=== PATIENT | male | born 1960 | race Caucasian/White ===

== ENCOUNTER 2018-03-15 10:26 | Inpatient (IN) | payer BC ==
[~2018-03-15] VITALS: Ht 175.3 cm; Wt 50.8 kg
[~2018-03-15 10:26] MED LIST: CYAN50TA2 PO; PANT40TA25 PO; SELE200T27 PO; SOTA80TA20 PO; VITA1CAP85 PO
[2018-03-15] MEDS ORDERED: SODIUM CHLORIDE 0.9% 1000ML 1,000 ML IV ONE ×2 (10:33→11:44)
[2018-03-15] MEDS ORDERED: ASPIRIN 325 MG TABLET ONE (10:48)
[2018-03-15 10:51] LABS: BASOPHILS % (AUTO) 0.5 % (0.0-5.0); EOSINOPHILS % (AUTO) 0.9 % (0.0-8.0); HEMATOCRIT 43.6 % (42-54); LYMPHOCYTES % (AUTO) 12.4 % (21.0-51.0); MEAN CORPUSCULAR HEMOGLOBIN 31.9 pg (27.0-33.0); MEAN CORPUSCULAR HGB CONC 33.7 g/dL (32.0-36.0); MEAN CORPUSCULAR VOLUME 94.6 fL (79-99); MONOCYTES % (AUTO) 5.4 % (3.0-13.0); NEUTROPHILS % (AUTO) 80.8 % (40.0-77.0); PLATELET COUNT (AUTO) 405 K/uL (130-400); RED BLOOD CELL COUNT(AUTO) 4.61 MIL/uL (4.50-6.20); RED CELL DISTRIBUTION WIDTH 12.8 % (11.0-15.5); WHITE BLOOD COUNT (AUTO) 10.2 K/uL (4.8-10.8)
[2018-03-15 10:58] LABS: CREATININE 1.2 mg/dL (0.5-1.5); POTASSIUM 5.3 mmol/L (3.5-5.1)
[2018-03-15 11:12] LABS: ALBUMIN 3.5 g/dL (3.5-5.0); BILIRUBIN,TOTAL 0.3 mg/dL (0.2-1.0); CREATINE KINASE MB 1.1 ng/mL (0.5-3.6); TOTAL PROTEIN, SERUM 7.6 g/dL (6.0-8.3)
[2018-03-15] MEDS ORDERED: NITROGLYCERIN 1GM/1 INCH PACKET TD ONE (11:20)
[2018-03-15 11:43] LABS: INR 1.03 (0.85-1.15); PARTIAL THROMBOPLASTIN TIME 36.1 SEC (26.3-35.5); PROTHROMBIN TIME 10.8 SEC (9.6-11.6)
[2018-03-15] MEDS ORDERED: IOHEXOL-350 75 ML VIAL IV ONE (13:16)
[2018-03-15 14:44] VITALS: BP 121/84
[2018-03-15] MEDS: SODIUM CHLORIDE 0.9% 1000ML 1,000 ML IV SCH (15:24)
[2018-03-15 16:09] LABS: CREATINE KINASE MB 1.1 ng/mL (0.5-3.6); CREATINE KINASE, TOTAL 52 U/L (21-232); MYOGLOBIN 20 ng/mL (10-92); TROPONIN I < 0.04 ng/mL (0.00-0.06)
[2018-03-15 16:28] VITALS: BP 124/86
[2018-03-15] MEDS: PNEUMOCOCCAL VACCINE POLYVALENT 0.5 ML/VIAL [PPV] IM SCH (16:30)
[2018-03-15] MEDS: METHYLPREDNISOLONE SOD SUCC 40MG/ML 1ML IVP SCH ×2 (17:43→23:05)
[2018-03-15] MEDS: IPRATROPIUM/ALBUTEROL SULFATE 3 ML SOLUTION IH SCH (18:11)
[2018-03-15 19:50] VITALS: BP 100/70
[2018-03-15] MEDS: DOXYCYCLINE 100MG+NS 250ML 250 ML IV SCH (20:31)
[2018-03-15] MEDS: CEFEPIME HCL 1 GM VIAL IVP SCH (20:34)
[2018-03-15 20:40] LABS: CREATINE KINASE MB 1.1 ng/mL (0.5-3.6); CREATINE KINASE, TOTAL 51 U/L (21-232); MYOGLOBIN 20 ng/mL (10-92); TROPONIN I < 0.04 ng/mL (0.00-0.06)
[2018-03-15] MEDS ORDERED: SOTALOL HCL 80 MG TABLET PO SCH (21:00)
[2018-03-15] MEDS ORDERED: CEFEPIME HCL 1 GM VIAL IVP SCH (21:00)
[2018-03-15] MEDS ORDERED: DOXYCYCLINE 100MG+NS 250ML 250 ML IV SCH (22:00)
[2018-03-15] MEDS ORDERED: GUAIFENESIN-CODEINE 5 ML SYRUP ONE (22:56)
[2018-03-15] MEDS ORDERED: ZOLPIDEM TARTRATE 5 MG TAB ONE (22:57)
[2018-03-15 23:42] VITALS: BP 120/79
[2018-03-16] VITALS (18 sets, daily range): BP systolic 96–148; BP diastolic 60–92
[2018-03-16] MEDS: IPRATROPIUM/ALBUTEROL SULFATE 3 ML SOLUTION IH SCH ×4 (00:19→19:21)
[2018-03-16 03:47] LABS: BASOPHILS % (AUTO) 0.2 % (0.0-5.0); HEMATOCRIT 41.6 % (42-54); LYMPHOCYTES % (AUTO) 6.4 % (21.0-51.0); MEAN CORPUSCULAR HEMOGLOBIN 32.6 pg (27.0-33.0); MEAN CORPUSCULAR HGB CONC 34.6 g/dL (32.0-36.0); MEAN CORPUSCULAR VOLUME 94.1 fL (79-99); MONOCYTES % (AUTO) 0.4 % (3.0-13.0); PLATELET COUNT (AUTO) 415 K/uL (130-400); RED BLOOD CELL COUNT(AUTO) 4.42 MIL/uL (4.50-6.20); WHITE BLOOD COUNT (AUTO) 9.8 K/uL (4.8-10.8)
[2018-03-16 04:02] LABS: INR 1.02 (0.85-1.15); PARTIAL THROMBOPLASTIN TIME 34.7 SEC (26.3-35.5); PROTHROMBIN TIME 10.7 SEC (9.6-11.6)
[2018-03-16 04:06] LABS: ALBUMIN 3.5 g/dL (3.5-5.0); BILIRUBIN,TOTAL 0.1 mg/dL (0.2-1.0); CREATININE 0.9 mg/dL (0.5-1.5); PHOSPHORUS 3.2 mg/dL (2.5-4.9); POTASSIUM 4.3 mmol/L (3.5-5.1); TOTAL PROTEIN, SERUM 7.6 g/dL (6.0-8.3)
[2018-03-16] MEDS: SODIUM CHLORIDE 0.9% 1000ML 1,000 ML IV SCH ×2 (04:28→17:10)
[2018-03-16] MEDS ORDERED: METOPROLOL TARTRATE 1 MG/ML 5ML VIAL IV ONE (05:10)
[2018-03-16] MEDS: SOTALOL HCL 80 MG TABLET PO SCH ×2 (05:47→21:23)
[2018-03-16] MEDS: CEFEPIME HCL 1 GM VIAL IVP SCH ×3 (05:49→21:22)
[2018-03-16] MEDS: PANTOPRAZOLE SODIUM 40 MG TABLET.DR PO SCH (08:47)
[2018-03-16] MEDS: METHYLPREDNISOLONE SOD SUCC 40MG/ML 1ML IVP SCH ×2 (08:47→18:14)
[2018-03-16] MEDS ORDERED: ENOXAPARIN SODIUM 30 MG/0.3 ML SQ SCH (09:00)
[2018-03-16] MEDS: DOXYCYCLINE 100MG+NS 250ML 250 ML IV SCH ×2 (10:38→21:23)
[2018-03-16] MEDS ORDERED: PROPOFOL 10 MG/ML 20ML VIAL IV ONE (13:09)
[2018-03-16] MEDS ORDERED: GLYCOPYRROLATE 0.2 MG/ML 5 ML VIAL ONE (13:10)
[2018-03-16] MEDS ORDERED: LIDOCAINE HCL-MPF 2% 5ML VIAL ONE (13:13)
[2018-03-16] MEDS: PNEUMOCOCCAL VACCINE POLYVALENT 0.5 ML/VIAL [PPV] IM SCH (16:30)
[2018-03-16 16:35] LABS: APPEARANCE BODY FLUID CLOUDY (CLEAR); COLOR,BODY FLUID PINK (LT YELLOW); SPECIMENTYPE,BODY FLUID WASHINGS; TOTAL VOLUME,BODY FLUID 25 mL
[2018-03-16 16:36] LABS: BODY FLUID RBC 1116 /cu. mm.; BODY FLUID WBC 41 /cu. mm.
[2018-03-16 18:02] LABS: BF EOSINOPHIL 1 %; BF LYMPHOCYTE 13 %; BF MESOTHELIAL 17 %; BF MONOCYTE 3 %; BF OTHER CELLS 3
[2018-03-16] MEDS ORDERED: TEMAZEPAM 15 MG CAPSULE PO SCH (21:00)
[2018-03-17] MEDS: METHYLPREDNISOLONE SOD SUCC 40MG/ML 1ML IVP SCH ×3 (02:33→17:12)
[2018-03-17 03:00] VITALS: BP 113/74
[2018-03-17] MEDS: CEFEPIME HCL 1 GM VIAL IVP SCH ×3 (05:56→20:46)
[2018-03-17] MEDS: SODIUM CHLORIDE 0.9% 1000ML 1,000 ML IV SCH (05:56)
[2018-03-17] MEDS: IPRATROPIUM/ALBUTEROL SULFATE 3 ML SOLUTION IH SCH ×5 (05:59→23:52)
[2018-03-17 06:11] LABS: BASOPHILS % (AUTO) 0.1 % (0.0-5.0); HEMATOCRIT 39.3 % (42-54); LYMPHOCYTES % (AUTO) 4.8 % (21.0-51.0); MEAN CORPUSCULAR VOLUME 94.1 fL (79-99); MONOCYTES % (AUTO) 4.1 % (3.0-13.0); PLATELET COUNT (AUTO) 353 K/uL (130-400); RED BLOOD CELL COUNT(AUTO) 4.17 MIL/uL (4.50-6.20); RED CELL DISTRIBUTION WIDTH 12.8 % (11.0-15.5); WHITE BLOOD COUNT (AUTO) 17.9 K/uL (4.8-10.8)
[2018-03-17 06:20] LABS: CREATININE 0.9 mg/dL (0.5-1.5); MAGNESIUM 1.8 mg/dL (1.80-2.40); POTASSIUM 4.1 mmol/L (3.5-5.1)
[2018-03-17 07:00] VITALS: BP 122/77
[2018-03-17] MEDS: SOTALOL HCL 80 MG TABLET PO SCH ×2 (09:38→20:47)
[2018-03-17] MEDS: PANTOPRAZOLE SODIUM 40 MG TABLET.DR PO SCH (09:38)
[2018-03-17] MEDS: DOXYCYCLINE 100MG+NS 250ML 250 ML IV SCH ×2 (09:39→20:46)
[2018-03-17] MEDS: ENOXAPARIN SODIUM 30 MG/0.3 ML SQ SCH (09:39)
[2018-03-17 11:00] VITALS: BP 128/78
[2018-03-17] MEDS: ALPRAZOLAM 0.25 MG TABLET PO PRN ×2 (15:01→19:09)
[2018-03-17 16:00] VITALS: BP 123/85
[2018-03-17 19:00] VITALS: BP 131/84
[2018-03-17] MEDS: TEMAZEPAM 30 MG CAP PO SCH (20:47)
[2018-03-17 23:00] VITALS: BP 133/78
[2018-03-18] MEDS: METHYLPREDNISOLONE SOD SUCC 40MG/ML 1ML IVP SCH ×3 (00:15→17:42)
[2018-03-18 03:00] VITALS: BP 118/84
[2018-03-18] MEDS: CEFEPIME HCL 1 GM VIAL IVP SCH ×3 (06:02→21:19)
[2018-03-18 06:26] LABS: BASOPHILS % (AUTO) 0.3 % (0.0-5.0); HEMATOCRIT 44.1 % (42-54); LYMPHOCYTES % (AUTO) 9.9 % (21.0-51.0); MEAN CORPUSCULAR HEMOGLOBIN 32.5 pg (27.0-33.0); MEAN CORPUSCULAR HGB CONC 33.9 g/dL (32.0-36.0); MEAN CORPUSCULAR VOLUME 95.8 fL (79-99); MONOCYTES % (AUTO) 6.2 % (3.0-13.0); NEUTROPHILS % (AUTO) 83.6 % (40.0-77.0); PLATELET COUNT (AUTO) 398 K/uL (130-400); RED CELL DISTRIBUTION WIDTH 13.1 % (11.0-15.5); WHITE BLOOD COUNT (AUTO) 11.4 K/uL (4.8-10.8)
[2018-03-18 06:33] LABS: CREATININE 0.7 mg/dL (0.5-1.5); POTASSIUM 4.2 mmol/L (3.5-5.1)
[2018-03-18] MEDS: IPRATROPIUM/ALBUTEROL SULFATE 3 ML SOLUTION IH SCH ×4 (06:47→23:17)
[2018-03-18 08:03] VITALS: BP 127/84
[2018-03-18] MEDS: PANTOPRAZOLE SODIUM 40 MG TABLET.DR PO SCH (09:45)
[2018-03-18] MEDS: SOTALOL HCL 80 MG TABLET PO SCH ×2 (09:45→21:19)
[2018-03-18] MEDS: DOXYCYCLINE 100MG+NS 250ML 250 ML IV SCH ×2 (09:45→21:20)
[2018-03-18] MEDS: ALPRAZOLAM 0.25 MG TABLET PO PRN ×3 (09:45→18:09)
[2018-03-18] MEDS: ENOXAPARIN SODIUM 30 MG/0.3 ML SQ SCH (09:46)
[2018-03-18 11:51] VITALS: BP 124/84
[2018-03-18 15:20] VITALS: BP 119/80
[2018-03-18 19:28] VITALS: BP 129/78
[2018-03-18] MEDS: TEMAZEPAM 30 MG CAP PO SCH (21:19)
[2018-03-18 23:33] VITALS: BP 122/80
[2018-03-19] MEDS: METHYLPREDNISOLONE SOD SUCC 40MG/ML 1ML IVP SCH ×3 (01:04→17:14)
[2018-03-19 04:49] VITALS: BP 132/84
[2018-03-19] MEDS: CEFEPIME HCL 1 GM VIAL IVP SCH ×3 (05:47→21:31)
[2018-03-19 06:13] LABS: BASOPHILS % (AUTO) 0.3 % (0.0-5.0); HEMATOCRIT 43.2 % (42-54); MEAN CORPUSCULAR HEMOGLOBIN 31.1 pg (27.0-33.0); MEAN CORPUSCULAR HGB CONC 32.9 g/dL (32.0-36.0); MEAN CORPUSCULAR VOLUME 94.6 fL (79-99); MONOCYTES % (AUTO) 3.2 % (3.0-13.0); NEUTROPHILS % (AUTO) 89.5 % (40.0-77.0); NUCLEATED RED BLOOD CELLS 0.1 % (0.0-0.19); PLATELET COUNT (AUTO) 300 K/uL (130-400); RED BLOOD CELL COUNT(AUTO) 4.57 MIL/uL (4.50-6.20); RED CELL DISTRIBUTION WIDTH 12.8 % (11.0-15.5); WHITE BLOOD COUNT (AUTO) 11.7 K/uL (4.8-10.8)
[2018-03-19 06:29] LABS: CREATININE 0.6 mg/dL (0.5-1.5); POTASSIUM 4.3 mmol/L (3.5-5.1)
[2018-03-19] MEDS: IPRATROPIUM/ALBUTEROL SULFATE 3 ML SOLUTION IH SCH ×3 (06:57→18:35)
[2018-03-19 07:57] VITALS: BP 122/83
[2018-03-19] MEDS: ALPRAZOLAM 0.25 MG TABLET PO PRN ×2 (08:28→15:03)
[2018-03-19] MEDS: SOTALOL HCL 80 MG TABLET PO SCH ×2 (08:28→21:31)
[2018-03-19] MEDS: PANTOPRAZOLE SODIUM 40 MG TABLET.DR PO SCH (08:28)
[2018-03-19] MEDS: DOXYCYCLINE 100MG+NS 250ML 250 ML IV SCH ×2 (08:29→21:31)
[2018-03-19] MEDS: ENOXAPARIN SODIUM 30 MG/0.3 ML SQ SCH (08:30)
[2018-03-19 12:00] VITALS: BP 116/81
[2018-03-19 16:00] VITALS: BP 136/85
[2018-03-19] MEDS ORDERED: PNEUMOCOCCAL VACCINE POLYVALENT 0.5 ML/VIAL [PPV] ONE (16:40)
[2018-03-19 19:33] VITALS: BP 119/87
[2018-03-19] MEDS: TEMAZEPAM 30 MG CAP PO SCH (21:31)
[2018-03-20] MEDS: METHYLPREDNISOLONE SOD SUCC 40MG/ML 1ML IVP SCH (00:06)
[2018-03-20] MEDS: IPRATROPIUM/ALBUTEROL SULFATE 3 ML SOLUTION IH SCH ×4 (01:48→18:36)
[2018-03-20 04:01] VITALS: BP 114/73
[2018-03-20] MEDS: CEFEPIME HCL 1 GM VIAL IVP SCH (05:13)
[2018-03-20] MEDS: ALPRAZOLAM 0.25 MG TABLET PO PRN ×4 (05:13→18:00)
[2018-03-20 08:01] VITALS: BP 130/86
[2018-03-20] MEDS: PANTOPRAZOLE SODIUM 40 MG TABLET.DR PO SCH (09:25)
[2018-03-20] MEDS: ENOXAPARIN SODIUM 30 MG/0.3 ML SQ SCH (09:25)
[2018-03-20] MEDS: SOTALOL HCL 80 MG TABLET PO SCH ×2 (09:25→21:28)
[2018-03-20] MEDS: DOXYCYCLINE HYCLATE 100 MG TABLET PO SCH ×2 (09:55→21:28)
[2018-03-20] MEDS: PREDNISONE 20 MG TABLET PO SCH (09:56)
[2018-03-20 11:43] VITALS: BP 112/51
[2018-03-20 16:01] VITALS: BP 116/79
[2018-03-20 20:00] VITALS: BP 126/83
[2018-03-20] MEDS: TEMAZEPAM 30 MG CAP PO SCH (21:28)
[2018-03-20 23:53] VITALS: BP 99/68
[2018-03-21 03:36] VITALS: BP 117/85
[2018-03-21 04:04] LABS: INR 1.01 (0.85-1.15); PARTIAL THROMBOPLASTIN TIME 32.6 SEC (26.3-35.5); PROTHROMBIN TIME 10.6 SEC (9.6-11.6)
[2018-03-21] MEDS: IPRATROPIUM/ALBUTEROL SULFATE 3 ML SOLUTION IH SCH ×4 (06:00→18:00)
[2018-03-21 07:52] VITALS: BP 109/78
[2018-03-21] MEDS ORDERED: DIATR MEGLU/DIATRIZOATE SODIUM 30 ML BOTTLE ONE (08:02)
[2018-03-21] MEDS: ALPRAZOLAM 0.25 MG TABLET PO PRN ×3 (08:04→21:13)
[2018-03-21] MEDS: ENOXAPARIN SODIUM 30 MG/0.3 ML SQ SCH (09:00)
[2018-03-21] MEDS: PANTOPRAZOLE SODIUM 40 MG TABLET.DR PO SCH (09:04)
[2018-03-21] MEDS: SOTALOL HCL 80 MG TABLET PO SCH ×2 (09:05→21:10)
[2018-03-21] MEDS: PREDNISONE 20 MG TABLET PO SCH (09:05)
[2018-03-21] MEDS: DOXYCYCLINE HYCLATE 100 MG TABLET PO SCH ×2 (09:05→21:10)
[2018-03-21] MEDS ORDERED: GADOBENATE DIMEGLUMINE 10 ML IV ONE (10:09)
[2018-03-21] MEDS ORDERED: LIDOCAINE HCL-MPF 2% 5ML VIAL ONE (10:45)
[2018-03-21] MEDS ORDERED: MIDAZOLAM HCL 1 MG/ML 2ML VIAL ONE (10:54)
[2018-03-21] MEDS ORDERED: FENTANYL CITRATE PF 50 MCG/1 ML 2ML VIAL ONE (10:54)
[2018-03-21] MEDS ORDERED: IOHEXOL 350 MG/ML 100ML INFUS..BTL IV ONE (10:55)
[2018-03-21] MEDS ORDERED: OCTYL 2-CYANOACRYLATE 1 EACH TP ONE (11:25)
[2018-03-21 12:50] VITALS: BP 109/74
[2018-03-21] MEDS ORDERED: ACETAMINOPHEN-CODEINE 300/30MG TAB PO PRN (13:15)
[2018-03-21] MEDS: ACETAMINOPHEN-CODEINE 300/30MG TAB PO PRN (13:47)
[2018-03-21 16:18] VITALS: BP 109/72
[2018-03-21 19:00] VITALS: BP 103/71
[2018-03-21] MEDS: TEMAZEPAM 30 MG CAP PO SCH (21:10)
[2018-03-21 23:00] VITALS: BP 116/71
[2018-03-22 03:00] VITALS: BP 121/59
[2018-03-22] MEDS: IPRATROPIUM/ALBUTEROL SULFATE 3 ML SOLUTION IH SCH ×4 (06:11→17:57)
[2018-03-22 07:43] VITALS: BP 125/81
[2018-03-22] MEDS: PREDNISONE 20 MG TABLET PO SCH (09:49)
[2018-03-22] MEDS: PANTOPRAZOLE SODIUM 40 MG TABLET.DR PO SCH (09:49)
[2018-03-22] MEDS: DOXYCYCLINE HYCLATE 100 MG TABLET PO SCH ×2 (09:49→20:36)
[2018-03-22] MEDS: ENOXAPARIN SODIUM 30 MG/0.3 ML SQ SCH (09:50)
[2018-03-22] MEDS: SOTALOL HCL 80 MG TABLET PO SCH ×2 (09:50→20:36)
[2018-03-22] MEDS: ACETAMINOPHEN-CODEINE 300/30MG TAB PO PRN (10:57)
[2018-03-22 11:09] VITALS: BP 103/74
[2018-03-22] MEDS: MORPHINE SULFATE 2 MG/ML 1ML SYG IVP PRN ×2 (14:43→20:36)
[2018-03-22 16:36] VITALS: BP 117/79
[2018-03-22] MEDS: ALPRAZOLAM 0.25 MG TABLET PO PRN (17:05)
[2018-03-22 19:53] VITALS: BP 99/65
[2018-03-22] MEDS: TEMAZEPAM 30 MG CAP PO SCH (20:36)
[2018-03-22 23:34] VITALS: BP 120/66
[2018-03-23 04:21] VITALS: BP 112/62
[2018-03-23 04:56] LABS: BASOPHILS % (AUTO) 0.2 % (0.0-5.0); HEMATOCRIT 40.4 % (42-54); LYMPHOCYTES % (AUTO) 16.2 % (21.0-51.0); MEAN CORPUSCULAR HEMOGLOBIN 32.8 pg (27.0-33.0); MEAN CORPUSCULAR HGB CONC 34.6 g/dL (32.0-36.0); MEAN CORPUSCULAR VOLUME 94.6 fL (79-99); MONOCYTES % (AUTO) 9.3 % (3.0-13.0); NEUTROPHILS % (AUTO) 73.3 % (40.0-77.0); PLATELET COUNT (AUTO) 357 K/uL (130-400); RED BLOOD CELL COUNT(AUTO) 4.27 MIL/uL (4.50-6.20); RED CELL DISTRIBUTION WIDTH 12.9 % (11.0-15.5); WHITE BLOOD COUNT (AUTO) 10.4 K/uL (4.8-10.8)
[2018-03-23 05:06] LABS: CREATININE 0.7 mg/dL (0.5-1.5); MAGNESIUM 1.9 mg/dL (1.80-2.40); POTASSIUM 3.7 mmol/L (3.5-5.1)
[2018-03-23] MEDS: IPRATROPIUM/ALBUTEROL SULFATE 3 ML SOLUTION IH SCH ×3 (06:05→11:07)
[2018-03-23] MEDS: ALPRAZOLAM 0.25 MG TABLET PO PRN (06:41)
[2018-03-23 07:52] VITALS: BP 123/87
[2018-03-23] MEDS: ENOXAPARIN SODIUM 30 MG/0.3 ML SQ SCH (08:43)
[2018-03-23] MEDS: PANTOPRAZOLE SODIUM 40 MG TABLET.DR PO SCH (08:43)
[2018-03-23] MEDS: DOXYCYCLINE HYCLATE 100 MG TABLET PO SCH (08:43)
[2018-03-23] MEDS: SOTALOL HCL 80 MG TABLET PO SCH (08:43)
[2018-03-23] MEDS ORDERED: ACETAMINOPHEN 325 MG TAB ONE (10:37)
[2018-03-23 10:57] VITALS: BP 115/67
== END 2018-03-23 13:50 | disposition home or self-care (01) | DRG 181 ==
LOC: EDH 10:26 → EDHIP 13:20 → 2DH 14:37
PROVIDERS: ADMIT Hospitalist; ATTEND Hospitalist
PROC: 0BJ08ZZ Inspection of Tracheobronchial Tree, Via Natural or Artificial Opening Endoscopic (ICD-10-PCS; principal; 2018-03-16)
PROC: 0B928ZX Drainage of Carina, Via Natural or Artificial Opening Endoscopic, Diagnostic (ICD-10-PCS; 2018-03-16)
PROC: 0BB38ZX Excision of Right Main Bronchus, Via Natural or Artificial Opening Endoscopic, Diagnostic (ICD-10-PCS; 2018-03-16)
PROC: 0BD38ZX Extraction of Right Main Bronchus, Via Natural or Artificial Opening Endoscopic, Diagnostic (ICD-10-PCS; 2018-03-16)
PROC: 05HN33Z Insertion of Infusion Device into Left Internal Jugular Vein, Percutaneous Approach (ICD-10-PCS; 2018-03-21)
PROC: B544ZZA Ultrasonography of Left Jugular Veins, Guidance (ICD-10-PCS; 2018-03-21)
PROC: B5141ZA Fluoroscopy of Left Jugular Veins using Low Osmolar Contrast, Guidance (ICD-10-PCS; 2018-03-21)
DX: C34.90 Malignant neoplasm of unspecified part of unspecified bronchus or lung (principal); J44.0 Chronic obstructive pulmonary disease with (acute) lower respiratory infection; I48.92 Unspecified atrial flutter; E22.2 Syndrome of inappropriate secretion of antidiuretic hormone; I47.1 Supraventricular tachycardia; R13.10 Dysphagia, unspecified; I95.9 Hypotension, unspecified; F17.200 Nicotine dependence, unspecified, uncomplicated; J20.9 Acute bronchitis, unspecified; E27.8 Other specified disorders of adrenal gland; R59.1 Generalized enlarged lymph nodes; R59.0 Localized enlarged lymph nodes; F41.9 Anxiety disorder, unspecified; G47.00 Insomnia, unspecified; I48.0 Paroxysmal atrial fibrillation; K21.9 Gastro-esophageal reflux disease without esophagitis; K29.70 Gastritis, unspecified, without bleeding; I11.9 Hypertensive heart disease without heart failure; B96.20 Unspecified Escherichia coli [E. coli] as the cause of diseases classified elsewhere; Z82.49 Family history of ischemic heart disease and other diseases of the circulatory system; Z80.9 Family history of malignant neoplasm, unspecified
CPT/HCPCS: 36415; 36561; 70553; 71045; 71260; 74178; 77001; 80048; 80053; 80061; 82550; 82553; 83605; 83735; 83874; 84100; 84132; 84484; 85025; 85610; 85730; 87071; 87077; 87101; 87116; 87186; 87205; 87206; 88104; 88305; 88312; 89051; 90732; 93005; 94640; 94664; 99291; A4218; A9577; J0692; J1644; J1650; J2250; J2704; J2920; J3010; J3490; J7030; Q2038; Q9963; Q9967